=== PATIENT | female | born 1950 | race Caucasian/White ===

== ENCOUNTER 2019-04-10 10:27 | Emergency (ER) | payer OTHER, MEDICAID ==
[~2019-04-10] VITALS: Ht 162.6 cm; Wt 53.5 kg
--- NOTE | 2019-04-10 10:27 | NUR ---
PT BIB [facility] TO ER BED 4
[2019-04-10 10:28] VITALS: BP 121/66
--- NOTE | 2019-04-10 10:35 | NUR ---
PT BIBA C/O WONG AND BACK PAIN S/P GROUND-LEVEL FALL TODAY. -LOC OR INJURY. PT IS A&OX1. PATIENT'S PAIN IS 4/10 ON THE FLACC SCALE AT THIS TIME; VSS; PATIENT POSITIONED FOR COMFORT; HOB ELEVATED; BEDRAILS UP X2; BED DOWN. ER MD MADE AWARE OF PT STATUS. PT IS ON THE MONITOR. NO BRUISE OR INJURY NOTICED UPON PHYSICAL ASSESSMENT.
--- NOTE | 2019-04-10 11:18 | NUR ---
XRAY IS AT BEDSIDE, PT'S FAMILY MEMBERS ARE AT BEDSIDE.
--- NOTE | 2019-04-10 11:32 | NUR ---
PT TAKEN BACK FROM CT SCAN VIA GURNEY ASSISTED BY Scoopinion. PT IS ON MONITOR. VSS.
--- NOTE | 2019-04-10 12:20 | NUR ---
PT IS RESTING IN THE BED. FAMILY MEMBERS ARE AT BEDSIDE. PT IS ON MONITOR. VSS.
[2019-04-10 13:28] VITALS: BP 101/51
--- NOTE | 2019-04-10 13:28 | NUR ---
Patient discharged with v/s stable. Written and verbal after care instructions given and explained patient's daughter. Patient's daughter verbalized understanding. Ambulate w/ assistance by patient's daughters private vehicle back to [facility]. All questions addressed prior to discharge. Advised to follow up with PMD.
== END 2019-04-10 13:28 | disposition home or self-care (01) ==
LOC: MED 10:27
DX: S09.90XA Unspecified injury of head, initial encounter (principal); F32.9 Major depressive disorder, single episode, unspecified; F03.90 Unspecified dementia, unspecified severity, without behavioral disturbance, psychotic disturbance, mood disturbance, and anxiety; W18.39XA Other fall on same level, initial encounter; Y92.89 Other specified places as the place of occurrence of the external cause; Y93.89 Activity, other specified; Y99.8 Other external cause status
CPT/HCPCS: 70450; 93005; 99284

== ENCOUNTER 2019-04-20 14:00 | Emergency (ER) | payer OTHER, MEDICAID ==
[~2019-04-20] VITALS: Ht 172.7 cm; Wt 52.2 kg
--- NOTE | 2019-04-20 14:04 | NUR ---
PT BIBA TO BED 05.
[2019-04-20 14:07] VITALS: BP 145/96
--- NOTE | 2019-04-20 14:19 | NUR ---
68 Y/O F TUSHAR FROM [facility], PER EMS PT HAD UNWITNESSED FALL. PER FACILITY POSSIBLE HIP FRACTURE PT FOUND GUARDING HIP. ALLERGIES, HX, RX = SEE LIST. PT A/OX0. HX OF DEMENTIA
--- NOTE | 2019-04-20 14:24 | NUR ---
ermd at bedside
[2019-04-20] MEDS ORDERED: LORazepam 2 MG/ML VIAL IM ONE (14:35)
[2019-04-20] MEDS ORDERED: KETOROLAC 60 MG/2 ML VIAL IM ONE (14:35)
--- NOTE | 2019-04-20 15:10 | NUR ---
PT RESTING IN BED, SIDE RAIL X2
--- NOTE | 2019-04-20 17:23 | NUR ---
PT RESTING IN BED, SIDE RAIL X2
[2019-04-20] MEDS ORDERED: HALOPERIDOL IM 5 MG/ML VIAL IM ONE (17:30)
[2019-04-20] MEDS ORDERED: diphenhydrAMINE 50 MG/ML VIAL IM ONE (17:30)
--- NOTE | 2019-04-20 18:47 | NUR ---
PT TAKEN TO CT VIA JOHNATHAN
[2019-04-20] MEDS ORDERED: NACL 0.9% 500 ML IV SCH (19:15)
[2019-04-20 20:12] LABS: BASOPHILS % (AUTO) 0.4 % (0.0-2.0); EOSINOPHILS % (AUTO) 0.1 % (0.0-4.0); HEMATOCRIT 36.2 % (36-48); HEMOGLOBIN 12.1 g/dL (12.0-16.0); LYMPHOCYTES # (AUTO) 1.3 K/uL (2.5-16.5); MEAN CORPUSCULAR HEMOGLOBIN 32 pg (27-31); MEAN CORPUSCULAR HGB CONC 33 g/dL (33-37); MEAN CORPUSCULAR VOLUME 94.8 fL (80-94); MONOCYTES # (AUTO) 0.6 K/uL (0.8-1.0); MONOCYTES % (AUTO) 7.1 % (1.7-9.3); NEUTROPHILS # (AUTO) 7.1 K/uL (1.8-7.7); NEUTROPHILS % (AUTO) 78.4 % (42.2-75.2); PLATELET COUNT (AUTO) 217 K/uL (140-450); RED BLOOD CELL COUNT(AUTO) 3.82 MIL/uL (4.20-5.40); RED CELL DISTRIBUTION WIDTH 13.3 % (11.6-13.7); WHITE BLOOD COUNT (AUTO) 9.1 K/uL (4.8-10.8)
[2019-04-20 20:24] LABS: ANION GAP 14.1 (8-16); CARBON DIOXIDE 27.8 mmol/L (21-32); CREATININE 0.8 mg/dL (0.6-1.3); POTASSIUM 3.9 mmol/L (3.5-5.1)
[2019-04-20 20:38] LABS: ALBUMIN 3.5 g/dL (3.4-5.0); TOTAL BILIRUBIN 0.7 mg/dL (0.0-1.0)
[2019-04-20 20:42] LABS: PROTHROMBIN TIME 9.8 secs (10.8-13.4)
--- NOTE | 2019-04-20 21:17 | NUR ---
REPORT GIVEN TO ANTWAN Peña RN FOR CONTINUITY OF CARE
--- NOTE | 2019-04-20 21:18 | NUR ---
REPORT RECEIVED FROM BLANCA RUEDA. TRANSFER OF CARE AT THIS TIME.
--- NOTE | 2019-04-20 21:46 | NUR ---
PT RESTING IN BED WITH EYES CLOSED, MUMBLING UNINTELLIGIBLE SPEECH. OPENS EYES SPONTANEOUSLY. VSS. WILL CONTINUE TO MONITOR.
--- NOTE | 2019-04-20 23:25 | NUR ---
RESTING IN BED WITH EYES CLOSED. EYES OPEN SPONTANEOUSLY. CHEST RISE AND FALL EVEN, RESPIRATIONS UNLABORED. VSS AT THIS TIME.
--- NOTE | 2019-04-21 01:42 | NUR ---
REPOSITIONED PT TO COMFORT. HYGIENE PROVIDED. VSS AT THIS TIME. WILL CONTINUE TO MONITOR.
--- NOTE | 2019-04-21 03:48 | NUR ---
RESTING QUIETLY WITH EYES CLOSED AND VSS. EYES OPEN TO VERBAL STIMULI. NO COMPLAINTS AT THIS TIME.
--- NOTE | 2019-04-21 04:08 | NUR ---
Patient to be transferred to [facility]. Is being transferred due to ortho specialty. Receiving facility has accepting physician and available space. ER physician has signed transfer form. Patient or responsible democrat has agreed to transfer and signed form. Patient belongings inventoried and will be sent with patient. Copy of nursing notes, lab reports, EKG, Physicians Orders and X-rays to be sent with patient. Report called to BLANCA Verdin at receiving facility.
--- NOTE | 2019-04-21 05:30 | NUR ---
REPOSITIONED FOR COMFORT. PERINEAL HYGIENE PROVIDED. MEDIUM VOID.
--- NOTE | 2019-04-21 06:05 | NUR ---
[facility] TRANSPORT AT BEDSIDE
[2019-04-21 06:08] VITALS: BP 146/62
--- NOTE | 2019-04-21 06:08 | NUR ---
REPORT GIVEN TO TANYA. PT TRANSFERRED TO [facility] WITH FULL ASSIST. VSS. TRANSFER OF CARE AT THIS TIME.
--- NOTE | 2019-04-21 06:15 | NUR ---
PT TAKEN BY [facility] TRANSPORT TO [facility]
== END 2019-04-21 06:15 | disposition short-term general hospital (02) ==
LOC: MED 14:00
DX: S72.011A Unspecified intracapsular fracture of right femur, initial encounter for closed fracture (principal); G20 Parkinson's disease; F02.80 Dementia in other diseases classified elsewhere, unspecified severity, without behavioral disturbance, psychotic disturbance, mood disturbance, and anxiety; X58.XXXA Exposure to other specified factors, initial encounter; Y93.89 Activity, other specified; Y92.89 Other specified places as the place of occurrence of the external cause; Y99.8 Other external cause status
CPT/HCPCS: 36415; 71045; 72192; 73502; 80053; 82948; 83880; 84484; 85025; 85610; 85730; 86886; 86900; 86901; 93005; 96372; 99284; J1200; J1630; J1885; J2060; Q0092

== ENCOUNTER 2019-05-30 10:41 | Emergency (ER) | payer OTHER, MEDICAID ==
[~2019-05-30] VITALS: Ht 162.6 cm; Wt 50.3 kg
--- NOTE | 2019-05-30 10:41 | NUR ---
Patient TUSHAR YUSUF from [facility], transferred to bed 4. RN evaluating patient at bedside.
[2019-05-30 10:42] VITALS: BP 134/81
--- NOTE | 2019-05-30 10:58 | NUR ---
Dr. Dominique is evaluating the patient at bedside.
[2019-05-30] MEDS ORDERED: NEOMYCIN/POLYMYXIN/BACITRACIN 0.9 GM/1 PKT TP ONE (12:05)
[2019-05-30 12:29] VITALS: BP 126/78
== END 2019-05-30 12:40 | disposition home or self-care (01) ==
LOC: MED 10:41
DX: S91.202A Unspecified open wound of left great toe with damage to nail, initial encounter (principal); F03.90 Unspecified dementia, unspecified severity, without behavioral disturbance, psychotic disturbance, mood disturbance, and anxiety; X58.XXXA Exposure to other specified factors, initial encounter; Y93.89 Activity, other specified; Y92.89 Other specified places as the place of occurrence of the external cause; Y99.8 Other external cause status
CPT/HCPCS: 11730; 99284

== ENCOUNTER 2019-07-17 06:35 | Emergency (ER) | payer OTHER, MEDICAID ==
[~2019-07-17] VITALS: Ht 175.3 cm; Wt 45.4 kg
[2019-07-17 06:42] VITALS: BP 133/77
[2019-07-17 07:48] LABS: BASOPHILS # (AUTO) 0.1 K/uL (0.00-0.22); BASOPHILS % (AUTO) 1.8 % (0.0-2.0); EOSINOPHILS # (AUTO) 0.1 K/uL (0-0.4); EOSINOPHILS % (AUTO) 2.1 % (0.0-4.0); HEMATOCRIT 38.1 % (36-48); HEMOGLOBIN 12.8 g/dL (12.0-16.0); LYMPHOCYTES # (AUTO) 1.8 K/uL (2.5-16.5); LYMPHOCYTES % (AUTO) 31.6 % (20.5-51.1); MEAN CORPUSCULAR HEMOGLOBIN 32 pg (27-31); MEAN CORPUSCULAR HGB CONC 34 g/dL (33-37); MEAN CORPUSCULAR VOLUME 95.6 fL (80-94); MONOCYTES # (AUTO) 0.5 K/uL (0.8-1.0); MONOCYTES % (AUTO) 8.2 % (1.7-9.3); NEUTROPHILS # (AUTO) 3.3 K/uL (1.8-7.7); NEUTROPHILS % (AUTO) 56.3 % (42.2-75.2); PLATELET COUNT (AUTO) 217 K/uL (140-450); RED BLOOD CELL COUNT(AUTO) 3.99 MIL/uL (4.20-5.40); RED CELL DISTRIBUTION WIDTH 13.5 % (11.6-13.7); WHITE BLOOD COUNT (AUTO) 5.8 K/uL (4.8-10.8)
[2019-07-17 08:04] LABS: ANION GAP 11.5 (8-16); CARBON DIOXIDE 29.3 mmol/L (21-32); CREATININE 0.8 mg/dL (0.6-1.3); POTASSIUM 3.8 mmol/L (3.5-5.1)
[2019-07-17 08:49] LABS: PROTHROMBIN TIME 10.5 secs (10.8-13.4)
[2019-07-17 10:04] VITALS: BP 130/72
== END 2019-07-17 10:04 | disposition home or self-care (01) ==
LOC: MED 06:35
DX: S09.90XA Unspecified injury of head, initial encounter (principal); S19.9XXA Unspecified injury of neck, initial encounter; F03.90 Unspecified dementia, unspecified severity, without behavioral disturbance, psychotic disturbance, mood disturbance, and anxiety; W19.XXXA Unspecified fall, initial encounter; Y93.89 Activity, other specified; Y92.89 Other specified places as the place of occurrence of the external cause; Y99.8 Other external cause status
CPT/HCPCS: 36415; 70450; 72125; 80048; 85025; 85610; 85730; 99285

== ENCOUNTER 2020-01-13 08:48 | Emergency (ER) | payer OTHER, MEDICAID ==
[~2020-01-13] VITALS: Ht 165.1 cm; Wt 49.9 kg
--- NOTE | 2020-01-13 08:50 | NUR ---
To ED bed 07
[2020-01-13 08:55] VITALS: BP 137/59
--- NOTE | 2020-01-13 09:03 | NUR ---
Dr. Arnold at bedside.
--- NOTE | 2020-01-13 09:04 | NUR ---
keep family on pt updates: next of kin Dorita Sharpe
--- NOTE | 2020-01-13 09:21 | NUR ---
69 Y.O TUSHAR FROM [facility] C/O RIGHT LEG PAIN X1 DAY. STAFF REPORTS PATIENT HAD GROUND LEVEL FALL YESTERDAY, BUT DID NOT SUSTAIN ANY INJURIES. PT IS MINIMALLY VERBAL (AT BASELINE), NO DEFORMITIES NOTED. RESP EVEN AND UNLABORED. PATIENT DENIES ANY PAIN AT THIS TIME BUT FACIAL GRIMACING NOTED WHEN TOUCHING RIGHT LEG PMH: DEMENTA, BEHAVIORAL DISTURBANCE NKDA
--- NOTE | 2020-01-13 09:23 | NUR ---
PT TAKEN TO XRAY VIA JOHNATHAN
[2020-01-13 10:05] LABS: BASOPHILS % (AUTO) 0.4 % (0.0-2.0); HEMOGLOBIN 12.9 g/dL (12.0-16.0); LYMPHOCYTES # (AUTO) 0.7 K/uL (2.5-16.5); LYMPHOCYTES % (AUTO) 12.1 % (20.5-51.1); MEAN CORPUSCULAR HEMOGLOBIN 33 pg (27-31); MEAN CORPUSCULAR HGB CONC 34 g/dL (33-37); MONOCYTES # (AUTO) 0.4 K/uL (0.8-1.0); MONOCYTES % (AUTO) 7.4 % (1.7-9.3); NEUTROPHILS # (AUTO) 4.5 K/uL (1.8-7.7); NEUTROPHILS % (AUTO) 80.1 % (42.2-75.2); PLATELET COUNT (AUTO) 213 K/uL (140-450); RED BLOOD CELL COUNT(AUTO) 3.96 MIL/uL (4.20-5.40); RED CELL DISTRIBUTION WIDTH 13.8 % (11.6-13.7); WHITE BLOOD COUNT (AUTO) 5.6 K/uL (4.8-10.8)
[2020-01-13 10:20] LABS: ANION GAP 12.8 (8-16); CARBON DIOXIDE 26.9 mmol/L (21-32); CREATININE 0.8 mg/dL (0.6-1.3); POTASSIUM 3.7 mmol/L (3.5-5.1); TOTAL BILIRUBIN 0.7 mg/dL (0.0-1.0)
--- NOTE | 2020-01-13 10:27 | NUR ---
# 16 FR STRAIGHT catheter utilizing sterile technique. Immediate return of 5 ml CLEAR urine noted. Urine sample BEING collected. Pt tolerated procedure WELL.
--- NOTE | 2020-01-13 11:22 | NUR ---
SPOKE WITH DAUGHTER YON REGARDING DISCHARGE OF PT TO [facility]
[2020-01-13 11:30] VITALS: BP 136/61
--- NOTE | 2020-01-13 11:30 | NUR ---
Patient discharged with v/s stable. Written and verbal after care instructions given and explained. Patient alert, oriented and verbalized understanding of instructions. Wheel Chair Assisted with to long-term. All questions addressed prior to discharge. ID band removed. Patient advised to follow up with PMD. Rx of MACROBID given. Patient educated on indication of medication including possible reaction and side effects. Opportunity to ask questions provided and answered.
== END 2020-01-13 11:30 | disposition home or self-care (01) ==
LOC: MED 08:48
DX: N39.0 Urinary tract infection, site not specified (principal); F03.90 Unspecified dementia, unspecified severity, without behavioral disturbance, psychotic disturbance, mood disturbance, and anxiety; G20 Parkinson's disease
CPT/HCPCS: 36415; 71045; 72100; 73521; 73562; 80053; 81002; 84484; 85025; 93005; 99285; C1758; 81025

== ENCOUNTER 2020-01-18 12:46 | Inpatient (IN) | payer OTHER, MEDICAID, SELFPAY ==
[~2020-01-18] VITALS: Ht 165.1 cm; Wt 45.4 kg
--- NOTE | 2020-01-18 12:46 | NUR ---
Patient TUSHAR YUSUF from [facility], transferred to bed 2. RN evaluating patient at bedside.
[2020-01-18 12:55] VITALS: BP 94/55
--- NOTE | 2020-01-18 12:57 | NUR ---
69 YEAR OLD FEMALE BIBA FROM [facility], PER EMS THEY WERE NOT GIVEN ANY REPORT OTHER THAN THAT PT HAD HIGH BLOOD PRESSURE, DEHYDRATION, AND FEVER. PT ON ARRIVAL HR 80, BP 94/55, 99% 02SAT ON RA, RR 19, TEMP 98.3. PT AROUSABLE TO VOICE, ANSWERS QUESTIONS CONFUSED. PER EMS THIS IS PT BASELINE. PT BREATHING EVEN AND UNLABORED, SKIN WARM AND DRY. PT PLACED ON MONITOR, VS STABLE. PMH - DEMENTIA, PSYCHOSIS ALLERGIES - NKA
[2020-01-18] MEDS ORDERED: NACL 0.9% 1,000 ML IV ONE (13:35)
[2020-01-18 14:11] LABS: EOSINOPHILS % (AUTO) 0.6 % (0.0-4.0); HEMATOCRIT 36.4 % (36-48); HEMOGLOBIN 12.1 g/dL (12.0-16.0); LYMPHOCYTES # (AUTO) 0.7 K/uL (2.5-16.5); LYMPHOCYTES % (AUTO) 19.6 % (20.5-51.1); MEAN CORPUSCULAR HEMOGLOBIN 32 pg (27-31); MEAN CORPUSCULAR HGB CONC 33 g/dL (33-37); MEAN CORPUSCULAR VOLUME 96.6 fL (80-94); MONOCYTES # (AUTO) 0.3 K/uL (0.8-1.0); MONOCYTES % (AUTO) 8.4 % (1.7-9.3); NEUTROPHILS # (AUTO) 2.6 K/uL (1.8-7.7); NEUTROPHILS % (AUTO) 70.4 % (42.2-75.2); PLATELET COUNT (AUTO) 218 K/uL (140-450); RED BLOOD CELL COUNT(AUTO) 3.77 MIL/uL (4.20-5.40); RED CELL DISTRIBUTION WIDTH 14.1 % (11.6-13.7); WHITE BLOOD COUNT (AUTO) 3.8 K/uL (4.8-10.8)
[2020-01-18 14:27] LABS: ANION GAP 10.1 (8-16); CREATININE 0.7 mg/dL (0.6-1.3); POTASSIUM 4.1 mmol/L (3.5-5.1); TOTAL BILIRUBIN 0.3 mg/dL (0.0-1.0)
[2020-01-18 14:28] LABS: PROTHROMBIN TIME 9.2 secs (10.8-13.4)
[2020-01-18 14:29] LABS: LACTATE DEHYDROGENASE 209 U/L (81-234)
--- NOTE | 2020-01-18 14:30 | NUR ---
PT ALERT AND AWAKE, BREATHING EVEN AND UNLABORED
[2020-01-18 14:31] LABS: C-REACTIVE PROTEIN QUANT 29.6 mg/dL (0.0-0.9)
[2020-01-18 14:59] LABS: APPEARANCE,URINE CLOUDY (CLEAR); BILIRUBIN,URINE NEGATIVE (NEGATIVE); BLOOD, URINE NEGATIVE (NEGATIVE); COLOR,URINE AMBER (YELLOW); LEUKOCYTE ESTERASE ,URINE NEGATIVE (NEGATIVE); NITRITE, URINE POSITIVE (NEGATIVE); UGLUCOSE NEGATIVE (NEGATIVE)
[2020-01-18 15:26] LABS: RBC,URINE 0-5 /HPF (0-5)
--- NOTE | 2020-01-18 15:30 | NUR ---
PT ALERT AND AWAKE, BREATHING EVEN AND UNLABORED
[2020-01-18] MEDS ORDERED: MEMA10TA PO (15:50)
[2020-01-18] MEDS ORDERED: SIMV10TA1 PO (15:50)
[2020-01-18] MEDS ORDERED: DONE10TA10 PO (15:50)
[2020-01-18] MEDS ORDERED: ASPI-1205 PO (15:50)
[2020-01-18] MEDS ORDERED: BISA-218 RC (15:50)
[2020-01-18] MEDS ORDERED: QUET25TA PO (15:50)
[2020-01-18] MEDS ORDERED: FAMO-90 PO (15:50)
[2020-01-18] MEDS ORDERED: SERT100T PO (15:50)
[2020-01-18] MEDS ORDERED: CALC1CAP PO (15:50)
[2020-01-18] MEDS ORDERED: ACET-1182 PO (15:50)
[2020-01-18] MEDS ORDERED: MAGN400S60 PO (15:50)
[2020-01-18] MEDS ORDERED: cefTRIAXone 1,000 MG VIAL ONE (15:58)
[2020-01-18] MEDS ORDERED: HYDROcodone/APAP 7.5/325 MG 1 TAB PO PRN (16:05)
[2020-01-18] MEDS ORDERED: DOCUSATE SODIUM 100 MG GELCAP PO PRN (16:05)
[2020-01-18] MEDS ORDERED: ACETAMINOPHEN 325 MG TAB PO PRN (16:05)
[2020-01-18] MEDS ORDERED: ONDANSETRON 4 MG/2 ML VIAL IM/IVP PRN (16:05)
[2020-01-18] MEDS ORDERED: bisacodyL 10 MG SUPP RC SCH (16:05)
[2020-01-18] MEDS ORDERED: MAGNESIUM HYDROXIDE 2400 MG/30 ML UDC PO PRN (16:05)
[2020-01-18] MEDS ORDERED: POTASSIUM CHLORIDE 10 MEQ TABER PO PRN (16:05)
[2020-01-18 16:40] VITALS: BP 123/77
--- NOTE | 2020-01-18 16:40 | NUR ---
RECEIVED THIS 69 YEAR OLD FEMALE PER JOHNATHAN FROM ER, AWAKE, ALERT, DEMENTED,UNABLE TO OBTAIN HISTORY, UTTERING WORDS NOTED. BREATHING SPONTANEOUSLY AT ROOM AIR, NON LABORED. SKIN WARM TO TOUCH, WITH SACRAL WOUND NOTED. WITH IV CANNULA G20 AT RT AC ON SALINE LOCK NOTED. ADMITTED A CASE OF UTI, COVID POSITIVE, ON DROPLET ISOLATION. MRSA NARES SWAB DONE AND SENT TO LAB. SAFETY MEASURES IN PLACE AND CONTINUE MONITOR.
--- NOTE | 2020-01-18 16:40 | NUR ---
Patient will be admitted to care of Dr Parrish. Admited to Tele. Will go to room 116. Belongings list completed. Report to Patty RIOS.
[2020-01-18 17:01] LABS: CHOL/HDL RATIO 2.8 (1-4.5); FREE T4 (FREE THYROXINE) 0.84 ng/dL (0.76-1.46); MAGNESIUM 2.2 mg/dL (1.8-2.4); PHOSPHORUS 4.2 mg/dL (2.5-4.9); THYROID STIMULATING HORMONE 2.88 uIU/mL (0.34-3.74)
--- NOTE | 2020-01-18 17:15 | NUR ---
AFTERNOON CARE DONE BY LINE PATROLLER, ASSISTED WELL, PASSED SMALL AMOUNT OF LOOSE YELLOWISH NOTED, SACRAL WOUND CLEANSE WITH SALINE AND FOAM DRESSING APPLIED.
--- NOTE | 2020-01-18 17:48 | NUR ---
PATIENT'S DAUGHTER YON CALLED AND UPDATE PATIENT STATUS.
--- NOTE | 2020-01-18 18:20 | NUR ---
REGULAR MECHANICAL SOFT DIET SERVED, FEEDING ASSISTED WITH COURT TRANSCRIBER, TOLERATED WELL WITH GOOD SWALLOWING NOTED.
--- NOTE | 2020-01-18 19:30 | NUR ---
ENDORSED TO AVIATION MAINTENANCE INSTRUCTOR IN STABLE CONDITION FOR CONTINUITY OF CARE
--- NOTE | 2020-01-18 19:31 | NUR ---
RECEIVED BEDSIDE SHIFT REPORT FROM DAY SHIFT NURSE. PT IN BED RESTING. PT AWAKE, ALERT, CONFUSED. PT WITH KNOWN CASE OF DEMENTIA. PT UTTERING RANDOM WORDS WHEN ASKED. RESPIRATION EVEN AND UNLABORED TO ROOM AIR. DROPLET PRECAUTIONS OBSERVED AT ALL TIMES. PT NOT IN DISTRESS. O2 SAT 95%. ABDOMEN IS SOFT AND NON-TENDER. SKIN IS WARM AND DRY. PT WITH SACRAL ULCER, DRESSING IN PLACE. NO S/SX OF PAIN OR DISCOMFORT NOTED. FLACC 0. SAFETY MEASURES IN PLACE. WILL CONTINUE TO MONITOR.
[2020-01-18 20:00] VITALS: BP 109/65
[2020-01-18] MEDS: MEMANTINE 10 MG TAB PO SCH (20:53)
[2020-01-18] MEDS: SIMVASTATIN 10 MG TAB PO SCH (20:53)
[2020-01-18] MEDS: QUEtiapine FUMARATE 25 MG TAB PO SCH (20:53)
--- NOTE | 2020-01-18 20:53 | NUR ---
VITAL SIGNS STABLE. SCHEDULED MEDS GIVEN ORDERED. PT NOT IN DISTRESS, TOLERATING ROOM AIR. FLACC 0. PT KEPT COMFORTABLE. PT TURNED TO SIDE. SAFETY MEASURES IN PLACE. WILL CONTINUE TO MONITOR.
[2020-01-18] MEDS ORDERED: [UNRECOGNIZED DRUG - MIXTURE] PO SCH (21:00)
--- NOTE | 2020-01-18 22:12 | NUR ---
ROUNDS MADE. PT AWAKE IN BED. HOB SLIGHTLY ELEVATED. RESPIRATIONS EVEN AND UNLABORED. PT NOT IN DISTRESS. FLACC 0. SAFETY MEASURES IN PLACE. WILL CONTINUE TO MONITOR.
[2020-01-19] VITALS: BP 137/76
--- NOTE | 2020-01-19 00:36 | NUR ---
VITAL SIGNS STABLE. PT IN BED RESTING. PT NOT IN DISTRESS. FLACC 0. PT KEPT COMFORTABLE. SAFETY MEASURES IN PLACE. WILL CONTINUE TO MONITOR.
--- NOTE | 2020-01-19 02:09 | NUR ---
ROUNDS MADE. PT ASLEEP. VISIBLE CHEST RISE AND FALL NOTED. PT NOT IN DISTRESS. NO S/SX OF PAIN OR DISCOMFORT. PT KEPT COMFORTABLE. SAFETY MEASURES IN PLACE. CALL LIGHT WITHIN REACH. WILL CONTINUE TO MONITOR.
[2020-01-19 04:00] VITALS: BP 114/76
--- NOTE | 2020-01-19 04:12 | NUR ---
VITAL SIGNS STABLE. PT IN BED RESTING. PT NOT IN DISTRESS. O2 SAT AT 93% ON ROOM AIR. FLACC 0. SAFETY MEASURES IN PLACE. CALL LIGHT WITHIN REACH, WILL CONTINUE TO MONITOR.
--- NOTE | 2020-01-19 07:19 | NUR ---
ENDORSED TO DAY SHIFT NURSE FOR CONTINUITY OF CARE.
--- NOTE | 2020-01-19 07:25 | NUR ---
RECEIVED PATIENT FROM NIGHT NURSE. PATIENT AWAKE IN BED. PATIENT RESPONDED TO NAME, EYE OPENING. RESP EVEN AND UNLABORED ON ROOM AIR. NO NOTED DISTRESS AT THIS TIME. PLAN OF CARE DISCUSSED WITH PATIENT. PATIENT NODDED UNDERSTANDING. SOME CONFUSION NOTED, WITH HX OF DEMENTIA. SAFETY MEASURES IN PLACE. CALL LIGHT WITHIN REACH. WILL CONTINUE TO MONITOR.
[2020-01-19 08:00] VITALS: BP 114/68
--- NOTE | 2020-01-19 08:38 | NUR ---
PATIENT HAS BEEN SCREENED AND CATEGORIZED HIGH NUTRITION RISK. PATIENT WILL BE SEEN WITHIN 1-2 DAYS OF ADMISSION. 01/19/20-01/20/[address]
[2020-01-19] MEDS: SERTRALINE 50 MG TAB PO SCH (08:47)
[2020-01-19] MEDS: MEMANTINE 10 MG TAB PO SCH ×2 (08:48→21:07)
[2020-01-19] MEDS: ASPIRIN 81 MG TAB.CHEW PO SCH (08:48)
[2020-01-19] MEDS: LACTOBACILLUS RHAMNOSUS GG 1 EACH CAP PO SCH (08:48)
[2020-01-19] MEDS: FAMOTIDINE 20 MG TAB PO SCH (08:48)
[2020-01-19] MEDS: DONEPEZIL 10 MG TAB PO SCH (08:48)
[2020-01-19] MEDS: QUEtiapine FUMARATE 25 MG TAB PO SCH ×2 (08:48→21:07)
--- NOTE | 2020-01-19 08:55 | NUR ---
MORNING ROUTINE MEDICATIONS GIVEN. PATIENT IS SITTING UP IN BED AWAKE AND ALERT, ORIENTED TO PERSON. PATIENT IS BEING ASSISTED WITH BREAKFAST TRAY BY MANAGER LAN. PATIENT IS EATING WELL. LUNGS CLEAR ANTERIOR LOBES. SKIN IS WARM TO TOUCH. WILL ASSESS SACRAL WOUND LATER TIME. GENEVA 20G INTACT AND PATENT, SL. PATIENT HAS SELECTIVE SPEECH AND ABLE TO MAKE NEEDS KNOWN. DENIES OF PAIN AT THIS TIME AND WILL USE CALL LIGHT NEEDED. SAFETY MEASURES IN PLACE. WILL CONTINUE TO MONITOR.
[2020-01-19 09:43] LABS: BASOPHILS % (AUTO) 0.6 % (0.0-2.0); EOSINOPHILS % (AUTO) 0.4 % (0.0-4.0); HEMOGLOBIN 11.7 g/dL (12.0-16.0); LYMPHOCYTES # (AUTO) 0.9 K/uL (2.5-16.5); LYMPHOCYTES % (AUTO) 22.9 % (20.5-51.1); MEAN CORPUSCULAR HEMOGLOBIN 32 pg (27-31); MEAN CORPUSCULAR HGB CONC 34 g/dL (33-37); MEAN CORPUSCULAR VOLUME 96.5 fL (80-94); MONOCYTES # (AUTO) 0.2 K/uL (0.8-1.0); MONOCYTES % (AUTO) 4.7 % (1.7-9.3); NEUTROPHILS # (AUTO) 2.7 K/uL (1.8-7.7); NEUTROPHILS % (AUTO) 71.4 % (42.2-75.2); PLATELET COUNT (AUTO) 231 K/uL (140-450); RED BLOOD CELL COUNT(AUTO) 3.63 MIL/uL (4.20-5.40); RED CELL DISTRIBUTION WIDTH 14.1 % (11.6-13.7); WHITE BLOOD COUNT (AUTO) 3.7 K/uL (4.8-10.8)
[2020-01-19 10:04] LABS: ANION GAP 14.1 (8-16); CARBON DIOXIDE 24.6 mmol/L (21-32); CREATININE 0.5 mg/dL (0.6-1.3); POTASSIUM 3.7 mmol/L (3.5-5.1)
[2020-01-19 10:20] LABS: MAGNESIUM 1.9 mg/dL (1.8-2.4); PHOSPHORUS 2.8 mg/dL (2.5-4.9)
--- NOTE | 2020-01-19 10:58 | NUR ---
SOCIAL WORK NOTE: Patient's Orientation Unable To Assess Information Provided By YON BEKAARLIN - DAUGHTER Comments SW WAS UNABLE TO MEET PATIENT AT BEDSIDE TO COMPLETE ASSESSMENT. SW CONTACTED PATIENT'S DAUGHTER YON PELAYO TO COMPLETE ASSESSMENT. Group Work Program Aide, Realtionship and Phone Number YON PELAYO DAUGHTER [phone] Healthcare Power of Business Unit Director No Does Patient Have a POLST No Identifying Problems No Social Work Triggers Is A Social Work Consult Needed No Mandate Report Filed No Explanation Of Identifying Problems PATIENT IS A 69-YEAR-OLD FEMALE ADMITTED FOR ENCEPHALOPATHY AND DEMENTIA. PATIENT HAS PMHX OF PARKINSON'S DISEASE AND DEMENTIA. DAUGHTER REPORTED NO HISTORY OF SUBSTANCE ABUSE OR MENTAL HEALTH. PATIENT WAS ADMITTED FROM [facility] [phone]. Admitted From Assisted Living/Resident Pre-Admission Level Of Functioning Status Total Care Level Of Functioning Comment PER DAUGHTER, PATIENT REQUIRES TOTAL ASSISTANCE WITH ADLS. Prior Resources/Services Used In Last 12 Months Assisted Living Prior Resources/Service Comments PATIENT IS A RESIDENT AT [facility] ASSISTED LIVING. Prior DME Walker Dialysis Comments DAUGHTER REPORTED THAT PATIENT DOES NOT RECEIVE DIALYSIS. Living Situation Asst'd Living/Board &Care Patient Had Caregiver No Home Support No Caregiver Issues Financial Issues No Known Financial Issue Referral To The Financial Counselor Needed No Factors/Needs Assist Living/B & C Plcmt Explanation And Or Other Factors Affecting/Possible DC Needs DAUGHTER STATED SHE WOULD LIKE FOR PATIENT TO RETURN TO [facility]. Pt/Rep Participated In Discharge Plan Yes Patient/Family Agress With Discharge Plan Yes Discharge Plan Comments TENTATIVE DISCHARGE PLAN IS FOR PATIENT TO RETURN TO [facility]. DC Plan Status Initiated
--- NOTE | 2020-01-19 11:25 | NUR ---
PATIENT RESTING IN BED COMFORTABLY. AWAKE AND ALERT. SELECTIVE SPEECH. ABLE TO FOLLOW COMMANDS. RESP EVEN AND UNLABORED ON ROOM AIR. NO NOTED DISTRESS AT THIS TIME. CALL LIGHT WITHIN REACH. WILL CONTINUE TO MONITOR.
[2020-01-19 12:00] VITALS: BP 93/59
[2020-01-19 12:07] LABS: T4 (THYROXINE) 4.9 ug/dL (4.5-12.0)
--- NOTE | 2020-01-19 12:15 | NUR ---
PETRA WHITMANNER: PATIENT IS FROM [facility]. AT THIS TIME SHE WILL NOT BE ABLE TO RETURN DUE TO BEING COVID POSITIVE. FAXED PATIENTS CLINICALS TO [facility] AND CONTRACTED [facility]ACILITIES. WILL FOLLOW UP WITH ODELL PITTS. Addendum: 01/19/20 at 1412 by Pearl Thomas CM PETRA FUENTES: RECEIVED A CALL FROM BOTH [facility] AND [facility] THEY ARE BOTH ABLE TO ACCEPT THIS PATIENT. I WILL REACH OUT TO FAMILY MEMBER TO ASK IF THEY HAVE A PREFERENCE. Addendum: 01/20/20 at 1033 by Pearl Thomas CM PETRA FUENTES: SPOKE TO PATIENTS DAUGHTER YON [phone] SHE PREFERS HER MOTHER GOING TO [facility] SINCE ITS CLOSER TO HOME. CONTACTED BRAYAN FROM [facility] THAT PATIENT MAY BE DISCHARGING TODAY. WAITING ON A ROOM NUMBER. WILL GET TRANSPORTATION AUTH FROM [facility]. Addendum: 01/20/20 at 1052 by Pearl Thomas CM DC WET TRIMMER: SPOKE TO GISSELLE AT [facility] SHE PROVIDED AUTH FOR TRANSPORTATION AND [facility] #[id number] . FOLLOWED UP WITH BRAYAN AT [facility] PATIENT CAN GO TO ROOM 208 C. SHE STATED THAT SHE CAN HOLD THE BED IF THE PATIENT GETS DISCHARGED TOMORROW. Addendum: 01/21/20 at 1018 by Pearl Thomas CM DC WET TRIMMER: PATIENT WILL BE DISCHARGED TODAY TO [facility]. NOTIFIED JEANETTE AT [facility], PATIENT CAN STILL GO TO ROOM 208C. CALLED [facility] TO SET UP TRANSPORTATION THEY DO NOT HAVE ANY AVAILABLE DRIVERS IN THE AREA TODAY. Addendum: 01/21/20 at 1045 by Pearl Thomas CM PETRA WHITMANNER: SPOKE TO PATIENTS DAUGHTER TO NOTIFY HER THAT PATIENT WILL BE DISCHARGED TODAY LATER IN THE EVENING. JEANETTE AT [facility] WAS ABLE TO SET UP TRANSPORTATION FOR US WITH [facility]. TRANSPORTATION WILL BE HERE AT 7:00PM. NOTIFIED BLANCA STEVEN Addendum: 01/21/20 at 1104 by Pearl Thomas CM PETRA FUENTES: Carlos Alberto [place], [place] [id number] ROOM [facility]
[2020-01-19] MEDS ORDERED: FOAM DRESSING TP PRN (13:00)
--- NOTE | 2020-01-19 13:20 | NUR ---
PATIENT WAS ASSISTED WITH HER LUNCH. PATIENT TOLERATED WELL. ABLE TO FOLLOW COMMANDS. FLACC-0 WITH NO FACIAL GRIMACE. TOLERATING DAILY CARE WELL. WOUND CARE PROVIDED. DRESSING CHANGED. CALL LIGHT WITHIN REACH. WILL CONTINUE TO MONITOR.
[2020-01-19] MEDS: NACL 0.9% IRR 250 ML BOTTLE IR SCH (14:11)
--- NOTE | 2020-01-19 15:30 | NUR ---
01/19/20 RD INITIAL ASSESSMENT COMPLETED PLEASE REFER TO NUTRITION ASSESSMENT UNDER CARE ACTIVITY FOR ESTIMATED NUTRITIONAL NEEDS. 1. CONTINUE MECHANICAL SOFT DIET TOLERATED 2. RECOMMEND ENSURE TID 3. PROVIDE ASSISTANCE WITH MEALS 4. RECOMMEND VITAMIN C 500 MG BID AND ZINC [address] TO FOLLOW-UP 2-3 DAYS, HIGH RISK DALE DHILLON, DAILY
[2020-01-19 16:00] VITALS: BP 90/56
--- NOTE | 2020-01-19 16:55 | NUR ---
PATIENT SLEEPING IN BED. ROUTINE MEDICATION GIVEN. PATIENT TOLERATING WELL. EASILY AROUSABLE AND ALERT. PERIODS OF CONFUSION NOTED. PATIENT SPEAKS VERY LITTLE AND SELECTIVE. RESPONDING TO STAFF. CALL LIGHT WITHIN REACH. WILL CONTINUE TO MONITOR
--- NOTE | 2020-01-19 19:35 | NUR ---
ENDORSED PATIENT TO NIGHT NURSE. PATIENT IN STABLE CONDITION.
--- NOTE | 2020-01-19 19:36 | NUR ---
RECEIVED ENDORSEMENT FROM AM SHIFT RN. PATIENT IS ON ROOM AIR, NO DISTRESS, WITH IV SITE, SALINE LOCK, INTACT, INCONTINENT, WITH SACRAL WOUND ENDORSED, DROPLET PRECAUTION OBSERVED, FALL PROTOCOL IN PLACE, SAFETY MEASURES IN PLACE, PLAN OF CARE DISCUSSED, CALL LIGHT WITHIN REACH, WILL MONITOR.
[2020-01-19 20:00] VITALS: BP 101/60
[2020-01-19] MEDS: ASCORBIC ACID 500 MG TAB PO SCH (21:07)
[2020-01-19] MEDS: SIMVASTATIN 10 MG TAB PO SCH (21:08)
--- NOTE | 2020-01-19 21:16 | NUR ---
PATIENT IS AWAKE, DUE MEDS GIVEN ORDERED, TOLERATED WELL, CALL LIGHT WITHIN REACH.
--- NOTE | 2020-01-19 23:57 | NUR ---
V/S TAKEN AND RECORDED, REPOSITIONED, KEPT WARM AND COMFORTABLE, CALL LIGHT WITHIN REACH.
[2020-01-20] VITALS: BP 94/61
--- NOTE | 2020-01-20 02:46 | NUR ---
PATIENT IS ASLEEP, NO SOB, RESPIRATION EVEN AND UNLABORED.
[2020-01-20 04:00] VITALS: BP 107/62
--- NOTE | 2020-01-20 04:00 | NUR ---
V/S TAKEN AND RECORDED, NO DISTRESS, REPOSITIONED, LEXX CARE RENDERED, DRESSING CHANGED. KEPT CLEAN, DRY AND COMFORTABLE.
[2020-01-20 06:31] LABS: BASOPHILS % (AUTO) 0.8 % (0.0-2.0); EOSINOPHILS % (AUTO) 0.9 % (0.0-4.0); HEMOGLOBIN 11.5 g/dL (12.0-16.0); LYMPHOCYTES # (AUTO) 1.1 K/uL (2.5-16.5); LYMPHOCYTES % (AUTO) 33.3 % (20.5-51.1); MEAN CORPUSCULAR HEMOGLOBIN 32 pg (27-31); MEAN CORPUSCULAR HGB CONC 34 g/dL (33-37); MEAN CORPUSCULAR VOLUME 95.5 fL (80-94); MONOCYTES # (AUTO) 0.3 K/uL (0.8-1.0); MONOCYTES % (AUTO) 10.1 % (1.7-9.3); NEUTROPHILS # (AUTO) 1.8 K/uL (1.8-7.7); NEUTROPHILS % (AUTO) 54.9 % (42.2-75.2); PLATELET COUNT (AUTO) 241 K/uL (140-450); RED BLOOD CELL COUNT(AUTO) 3.56 MIL/uL (4.20-5.40); WHITE BLOOD COUNT (AUTO) 3.2 K/uL (4.8-10.8)
[2020-01-20 06:47] LABS: ANION GAP 10.9 (8-16); CARBON DIOXIDE 29.2 mmol/L (21-32); CREATININE 0.6 mg/dL (0.6-1.3); POTASSIUM 4.1 mmol/L (3.5-5.1)
[2020-01-20 06:54] LABS: PHOSPHORUS 3.1 mg/dL (2.5-4.9)
--- NOTE | 2020-01-20 07:15 | NUR ---
PATIENT IS IN STABLE CONDITION, ALL NEEDS ATTENDED, ENDORSEMENT GIVEN TO AM SHIFT RN FOR CONTINUITY OF CARE.
--- NOTE | 2020-01-20 07:16 | NUR ---
RECEIVED REPORT FROM MUSIC THERAPIST RN FOR CONTINUITY OF CARE. PT APPEARS STABLE, LAYING IN BED. IN NO DISTRESS. SAFETY MEASURES REMAIN IN PLACE. WILL CONTINUE WITH POC.
[2020-01-20 08:00] VITALS: BP 112/66
--- NOTE | 2020-01-20 08:40 | NUR ---
PT IS LAYING IN BED AWAKE AND ALERT ORIENTED X 1 TO NAME. PT WAS RE-ORIENTED. PT ABLE TO ANSWER SIMPLE YES OR NO QUESTIONS. PT TOLERATED PO MEDICATION, LUNGS SOUNDS DIMINISHED AT THE BASES. ABD IS FLAT, SOFT AND NONTENDER, BS ACTIVE X 4. LBM THIS MORNING. V/S: 97.9, 68, 18, 112/66, 98% RA DENIES PAIN 0/10 NO FACIAL GRIMACING. SAFETY MEASURES IN PLACE
[2020-01-20] MEDS: DONEPEZIL 10 MG TAB PO SCH (08:44)
[2020-01-20] MEDS: MEMANTINE 10 MG TAB PO SCH ×2 (08:45→22:43)
[2020-01-20] MEDS: ASCORBIC ACID 500 MG TAB PO SCH ×2 (08:45→22:44)
[2020-01-20] MEDS: ASPIRIN 81 MG TAB.CHEW PO SCH (08:45)
[2020-01-20] MEDS: QUEtiapine FUMARATE 25 MG TAB PO SCH ×2 (08:45→22:44)
[2020-01-20] MEDS: LACTOBACILLUS RHAMNOSUS GG 1 EACH CAP PO SCH (08:45)
[2020-01-20] MEDS: FAMOTIDINE 20 MG TAB PO SCH (08:45)
[2020-01-20] MEDS: SERTRALINE 50 MG TAB PO SCH (08:46)
[2020-01-20] MEDS: ZINC SULF 220 MG CAP PO SCH (08:46)
--- NOTE | 2020-01-20 10:30 | NUR ---
RESTING IN BED IN NO DISTRESS. WILL CONTINUE TO MONITOR.
[2020-01-20 12:00] VITALS: BP 121/74
--- NOTE | 2020-01-20 12:50 | NUR ---
PT SEEN BY WOUND NURSE, DRESSING CHANGED MEASUREMENTS 5X7 CM. V/S: 97.4, 64, 18, 121/74, 98% RA PAIN FLACC-0. URINE CULTURE CAME BACK POSITIVE FOR GRAM ALBERTO - WAITING SENSITIVITY.
[2020-01-20] MEDS: NACL 0.9% IRR 250 ML BOTTLE IR SCH (13:00)
--- NOTE | 2020-01-20 13:00 | NUR ---
WOUND CARE EVALUATION NOTE: REASON FOR EVALUATION: BUTTOCKS WOUND SKIN ASSESSMENT DONE WITH THIS 69 Y/O FEMALE PT ADMITTED TO [facility] WITH INITIAL DX OF FEVER, DIARRHEA, HYPERTENSION AND COVID POSITIVE WITH POSSIBLE COVID RELATED SKIN FAILURE THAT LEAD TO DTI. BMI 16.6, H/H 11.5/34 AND ALBUMIN 3.0PT. SKIN IS WARM AND DRY, BLE NO HAIR GROWTH, NO EDEMA TO BILATERAL LOWER LEGS. BILATERAL DORSAL PEDAL PULSES PRESENT AND NORMAL, CAPILLARY RE-FILLED <2SEC. PLAN OF CARE DISCUSSED WITH PRIMARY RN. COMORBIDITIES RELATED TO DELAY WOUND HEALING, FURTHER SKIN BREAKS AND UN-AVOIDABLE PRESSURE INJURY: BOWEL AND URINARY INCONTINENCE, LOW BMI, LOW ALBUMIN LEVEL , HYPOXEMIC DECREASE TISSUE PERFUSION, DECREASE MOBILITY AND FUNCTIONAL ABILITIES, AND HOB ELEVATED THE MAJORITY OF TIMES DUE TO MEDICAL REASONS. COVID RELATED SKIN FAILURE DUE TO TISSUE LESS TOLERATE TO PRESSURE, SHEARING AND POSSIBLE ASSOCIATED WITH MICROVASCULAR INJURY INTEGUMENTARY: -SACRALCOCCYX DTI 100% MAROON 5X7 CM, IRREGULAR SHAPE, SKIN INTACT WITH LXEX WOUND SKIN EROSIONS SUPERFICIAL DEPTH, MOIST NO ODOR. -MOISTURE ASSOCIATE DERMATITIS TO PERINEUM/LEXX-ANAL SKIN RED AND INTACT RECOMMENDATIONS: -APPLY THIN LAYER OF Z GUARD TO PERINEUM/LEXX-ANAL SKIN BID AND PRN IF SOILING -CLEANSE SACRALCOCCYX LEXX-WOUND EROSIONS WITH SOAP AND WATER, PAT DRY, APPLY THIN LAYER Z GUARD QD AND PRN WITH SOILING. -APPLY FOAM DRESSING TO SACRALCOCCYX AND ALL BONY PROMINENCE QD AND PRN SOILING, OFFLOADING AREAS BY PLACING PILLOWS -APPLY HEEL PROTECTORS TO BILATERAL HEELS -OFFLOAD BILATERAL HEELS BY PLACING PILLOWS UNDER CALVES UNLESS OTHERWISE CONTRAINDICATED -PRESSURE REDISTRIBUTION SURFACE THERAPY -TURN AND REPOSITION Q2H, OFFLOAD SACRALCOCCYX BY TURNING RIGHT AND LEFT -CONTINUE TO FOLLOW RD RECOMMENDATIONS ALL ABOVE RECOMMENDATIONS DISCUSSED WITH PRIMARY RN PLEASE CONTACT WOUND CARE NURSE FOR ANY QUESTION AND CHANGE OF WOUND CONDITION.
--- NOTE | 2020-01-20 14:33 | NUR ---
RESTING IN BED ALL NEEDS ARE MET. WILL CONTINUE TO MONITOR.
[2020-01-20 16:00] VITALS: BP 102/68
--- NOTE | 2020-01-20 16:45 | NUR ---
PT IS STABLE V/S: 97.0, 64, 18, 102/68, 99% RA PAIN 0/10. IN NO DISTRESS. PT WAS SWITCHED TO WOUND BED AND DRESSING CHANGED. PROPHYLAXIS FOAM APPLIED TO HIP BONES. Addendum: 01/20/20 at 1731 by Mirtha Garcia RN PT TOLERATING IVPB WITH NO ISSUES TO RIGHT FA.
[2020-01-20] MEDS ORDERED: FOAM DRESSING TP PRN (17:00)
[2020-01-20] MEDS: FOAM DRESSING TP SCH (17:31)
--- NOTE | 2020-01-20 18:43 | NUR ---
PT CURRENTLY BEING FED, ALL NEEDS MET.
--- NOTE | 2020-01-20 19:36 | NUR ---
REPORT GIVEN TO PEGGER RN FOR CONTINUITY OF CARE. PT IS STABLE IT WAS REPORTED BY ROBE THAT SHE ATE 60%.
--- NOTE | 2020-01-20 19:36 | NUR ---
RECEIVED REPORT FROM ZAFAR VARGAS RN. PT AOX1 ON ROOM AIR. NO S/S RESPIRATORY DISTRESS. FLACC 0. IV SITE RFA 22G PATENT AND INTACT. PT HAS SACRAL WOUND. SAFETY PRECAUTIONS IN PLACE. CALL LIGHT WITHIN REACH. WILL CONTINUE TO MONITOR
[2020-01-20 20:00] VITALS: BP 111/59
[2020-01-20] MEDS: SIMVASTATIN 10 MG TAB PO SCH (22:44)
--- NOTE | 2020-01-20 23:06 | NUR ---
ADMINISTERED SCHEDULED MEDS. CLEANED, CHANGED, REPOSITIONED PT, TOLERATED WELL. SAFETY PRECAUTIONS IN PLACE. WILL CONTINUE TO MONITOR
[2020-01-21] VITALS: BP 109/67
--- NOTE | 2020-01-21 00:30 | NUR ---
PT ASLEEP IN BED. RESPIRATIONS EVEN AND UNLABORED. NO DISTRESS NOTED. WILL CONTINUE TO MONITOR
[2020-01-21] MEDS: Z-GUARD PASTE TP SCH ×2 (01:52→13:04)
--- NOTE | 2020-01-21 02:35 | NUR ---
PT ASLEEP IN BED. NO DISTRESS NOTED. WILL CONTINUE TO MONITOR
[2020-01-21 04:00] VITALS: BP 103/58
--- NOTE | 2020-01-21 06:26 | NUR ---
CLEAN CHANGED REPOSITIONED PT, TOLERATED WELL. NO DISTRESS NOTED. WILL CONTINUE TO MONITOR
--- NOTE | 2020-01-21 07:10 | NUR ---
ENDORSED PT TO DAY RN FOR CONTINUITY OF CARE. PT IS IN STABLE CONDITION
--- NOTE | 2020-01-21 07:11 | NUR ---
RECEIVED ENDORSEMENT FROM DISABILITY INSURANCE HEARING OFFICER, AWAKE, ALERT, DEMENTED, BREATHING SPONTANEOUSLY AT ROOM AIR, NOT IN DISTRESS NOTED. WITH CANNULA G22 AT RT FOREARM ON SALINE LOCK NOTED. WITH SACRAL PRESSURE WOUND NOTED. DX: COVID POSITIVE, ON DROPLET ISOLATION. SAFETY MEASURES IN PLACE AND CONTINUE MONITOR.
[2020-01-21 08:00] VITALS: BP 122/68
[2020-01-21] MEDS: DONEPEZIL 10 MG TAB PO SCH (08:47)
[2020-01-21] MEDS: MEMANTINE 10 MG TAB PO SCH (08:48)
[2020-01-21] MEDS: LACTOBACILLUS RHAMNOSUS GG 1 EACH CAP PO SCH (08:48)
[2020-01-21] MEDS: FAMOTIDINE 20 MG TAB PO SCH (08:48)
[2020-01-21] MEDS: ASPIRIN 81 MG TAB.CHEW PO SCH (08:48)
[2020-01-21] MEDS: QUEtiapine FUMARATE 25 MG TAB PO SCH (08:49)
[2020-01-21] MEDS: ZINC SULF 220 MG CAP PO SCH (08:49)
[2020-01-21] MEDS: ASCORBIC ACID 500 MG TAB PO SCH (08:49)
[2020-01-21] MEDS: SERTRALINE 50 MG TAB PO SCH (08:49)
--- NOTE | 2020-01-21 09:11 | NUR ---
PUREE REGULAR DIET SERVED, FEEDING ASSISTED WELL, ATE 3TSP OF PUREE EGG, 2 BITES OF PANCAKE, 237ML ENSURE, TOLERATED WELL. DUE MEDICATION GIVEN
[2020-01-21] MEDS ORDERED: CEPH250C16 PO (10:10)
--- NOTE | 2020-01-21 10:30 | NUR ---
NOVEL MORENO SWAB TEST DONE AND SENT TO LAB
--- NOTE | 2020-01-21 10:48 | NUR ---
RADAR SCIENTIST CALLED AND PATIENT WILL BE TRANSFER TO [facility] BY [facility] AT 7PM.
[2020-01-21 12:00] VITALS: BP 121/80
--- NOTE | 2020-01-21 12:30 | NUR ---
VITAL SIGNS TAKEN AND RECORDED, STABLE. PASSED SOF STOOL ON MODERATE AMOUNT, AFTERCARE DONE BY OPHELIA AND ASSISTED WELL. DRESSING CHANGED AT SACRAL WOUND, CLEANSE WITH SALINE AND OPTIFOAM DRESSING APPLIED.
[2020-01-21] MEDS: NACL 0.9% IRR 250 ML BOTTLE IR SCH (13:04)
[2020-01-21] MEDS: FOAM DRESSING TP SCH (13:04)
--- NOTE | 2020-01-21 14:46 | NUR ---
DR. RODRIGUEZ CALLED AND UPDATED PATIENT STATUS
--- NOTE | 2020-01-21 15:07 | NUR ---
PATIENT'S DAUGHTER YON MADE AWARE THAT THE PATIENT WILL BE TRANSFER AT [facility] AT 1900H
[2020-01-21 16:00] VITALS: BP 111/71
[2020-01-21 16:25] VITALS: BP 111/71
--- NOTE | 2020-01-21 16:49 | NUR ---
TRIED TO CONTACT THE [facility] BUT APPARENTLY THE NURSE IS BUSY, CALL BACK NUMBER [phone]
--- NOTE | 2020-01-21 17:28 | NUR ---
AFTERNOON CARE DONE. TRIED TO FEED AND ABLE TO DRINK ENSURE 237ML +ORANGE JUICE 100ML, TOLERATED WELL.
--- NOTE | 2020-01-21 17:31 | NUR ---
[facility] CONTACTED AGAIN, APPARENTLY THE NURSE STILL BUSY ACCORDING TO THE OPERTAED Addendum: 01/21/20 at 1801 by Patty Felder RN STILL BUSY THE CUSTOMER ASSISTANT, MADE AWARE THAT THE [facility] TRANSPORT WILL COME BEFORE 1900H
--- NOTE | 2020-01-21 17:50 | NUR ---
ESCALATED TO MS. KERR, ART APPRAISER ON DUTY. CONTACTED THE FACILITY AND ACCORDING TO THE CUFF SETTER JASMINA NO NEED TO GIVE A REPORT.
--- NOTE | 2020-01-21 17:58 | NUR ---
CALL PLACE TO [facility] TALKED TO VISCOSITY INSPECTOR MARIETTA HESS SEND THE PT, NO NEED OF REPORT.
--- NOTE | 2020-01-21 18:07 | NUR ---
FULLY AWAKE AND ALERT, NOT IN DISTRESS NOTED.
--- NOTE | 2020-01-21 19:18 | NUR ---
ENDORSED TO VAUDEVILLE ACTOR IN STABLE CONDITION FOR CONTINUITY OF CARE
--- NOTE | 2020-01-21 19:30 | NUR ---
RECEIVED REPORT FORM TENISHA RIOS DAYSHIFT NURSE AT BEDSIDE FOR CONTINUITY OF CARE, PT IN STABLE CONDITION.
[2020-01-21] MEDS ORDERED: IV Zosyn IV (19:47)
--- NOTE | 2020-01-21 20:10 | NUR ---
RECEIVED LAST MINUTE DISCHARGE INSTRUCTIONS FORM MD JOHNSON, PT POSITIVE FOR ESBL IN THE URINE. MD JOHNSON ADDED ZOSYN 3.375GM Q8HR X 7 DAYS. INSTRUCTIONS PRINTED OUT. NEW IV SITE ADDED 22G TO LEFT F/A. PT IS AOX1 O S/S OF [PAIN OR DISTRESS NOTED. LAST V/S FOLLOWS: T 98.2 P 72 R 20 B/P 101/68 02 99% ON ROOM AIR. [facility] HERE TO TAKE PT TO [facility] [place]. OLD IV SIT4E WAS TAKEN OUT WITH CANNULA INTACT AND NAME BAND CUT OFF PT LEFT VIA GURNEY WITH BELONGINGS IN HAND.
== END 2020-01-21 20:10 | DRG 177 ==
LOC: MED 12:46 → MTU 16:10
PROVIDERS: ADMIT Emergency Medicine; ATTEND Emergency Medicine
DX: U07.1 COVID-19 (principal); G93.41 Metabolic encephalopathy; E43 Unspecified severe protein-calorie malnutrition; N39.0 Urinary tract infection, site not specified; Z68.1 Body mass index [BMI] 19.9 or less, adult; R64 Cachexia; D64.9 Anemia, unspecified; D72.819 Decreased white blood cell count, unspecified; E86.0 Dehydration; G20 Parkinson's disease; F02.80 Dementia in other diseases classified elsewhere, unspecified severity, without behavioral disturbance, psychotic disturbance, mood disturbance, and anxiety; I10 Essential (primary) hypertension; R74.01 Elevation of levels of liver transaminase levels
CPT/HCPCS: 36415; 71045; 80048; 80053; 81001; 82550; 82728; 83036; 83605; 83615; 83690; 83735; 83880; 84100; 84436; 84439; 84443; 84479; 84484; 85025; 85379; 85384; 85610; 85730; 86140; 87040; 87081; 87086; 87804; 93005; 96361; 96365; 97110; 97112; 97161-GP; 97530; 99285; J0696; J7030; J7060; Q0092; U0003-CS